=== PATIENT | female | born 1950 | race Caucasian/White ===

== ENCOUNTER → 2017-04-07 | Outpatient (CLI) | payer BC, MEDICARE ==
--- NOTE | 2017-04-07 14:52 | REP ---
Clinical: Contusion. Technique: AP, lateral, bilateral oblique views of the right hand. Findings: Advanced arthritic degenerative changes primarily involving the interphalangeal joints and most notably involving the third proximal interphalangeal joint. No obvious acute fracture or dislocation identified. Clinical correlation is recommended. Impression: Evaluation is limited by advanced osteoarthritic degenerative changes. No obvious acute fracture dislocation. Signed by Rell Tom MD 04/07/2017 02:43 P
== END ==
LOC: M WUC 14:27
PROVIDERS: ATTEND Physician Assistant
DX: S60.221A Contusion of right hand, initial encounter (principal); X58.XXXA Exposure to other specified factors, initial encounter; Y92.89 Other specified places as the place of occurrence of the external cause; Y93.89 Activity, other specified; Y99.8 Other external cause status

== ENCOUNTER → 2020-03-07 | Outpatient (CLI) | payer MEDICARE, BC ==
--- NOTE | 2020-03-07 23:38 | REP ---
REASON FOR EXAM: Abdominal pain and history of constipation. The intestinal gas pattern is nonspecific. Gas and stool are seen within the colon and within the rectosigmoid region. There is no intestinal obstruction. The organ silhouettes are for the most part obscured by intestinal content. Chronic change is seen involving the imaged spine and hips. IMPRESSION: No evidence of intestinal obstruction or acute disease. Electronically Signed by Remi Iwrin DO 03/08/2020 08:30 A
== END ==
LOC: M WUC 16:17
PROVIDERS: ATTEND Physician Assistant
DX: K59.00 Constipation, unspecified (principal); R10.9 Unspecified abdominal pain

== ENCOUNTER → 2020-11-30 | Outpatient (CLI) | payer MEDICARE, BC | LOC: M LABSMTC 07:44 | PROVIDERS: ATTEND Internal Medicine Cardiovascular Disease | DX: Z20.822 Contact with and (suspected) exposure to COVID-19 (principal) ==

== ENCOUNTER → 2022-04-30 | Outpatient (CLI) | payer MEDICARE, BC | LOC: M RAD 11:16 | PROVIDERS: ATTEND Internal Medicine Cardiovascular Disease | DX: I65.23 Occlusion and stenosis of bilateral carotid arteries (principal) ==